=== PATIENT | male | born 1995 | race Caucasian/White ===

== ENCOUNTER 2022-06-19 12:07 | Emergency (ER) | payer BC, SELFPAY ==
--- NOTE | 2022-06-19 12:00 | RT.EKG_ITS ---
APPROVED REPORT Exam: Resting ECG Reason for Exam: chest pain Patient Location: E HR:59 bpm ECG Measurements Heart Rate [address] 141 P 11 QRSd 103 QRS 70 QT 401 T 82 QTc 396 Conclusion Sinus bradycardia...rate< 60 Abnrm T, consider ischemia, anterolateral lds...T <-0.20mV, I aVL V2-V6 no stemi
[2022-06-19 12:06] VITALS: BP 150/84; PULSE 80; RESP 15; TEMP 37; O2SAT 99
--- NOTE | 2022-06-19 12:15 | DI.CT_ITS ---
Exam(s) CT THORAX CTA EXAM: CT THORAX CTA CLINICAL HISTORY: hx coarctation, chest pain. TECHNIQUE: Imaging Protocol: Axial CT angiography was performed with multi-slice acquisition and mu lti-planar and/or 3D reconstructions. CONTRAST MATERIAL: Intravenous: Omnipaque 350 contrast volume:100 mL COMPARISON: CT CHEST WITH CONTRAST from 12/04/2014 FINDINGS: Tracheobronchial tree: Patent where visualized. Pulmonary parenchyma: No consolidation or dominant measurable mass. No architectural distortion. Stab le right upper lobe pulmonary nodules. These were present on the examination from 12/04/2014. Pulmonary Arteries: No evidence of filling defect to suggest pulmonary emboli. Mediastinum and Ching: No dominant adenopathy or fluid collection. The esophagus is unremarkable. Visualized thyroid gland: Unremarkable. Pleura: No effusion or pneumothorax. Heart: The heart is not dilated. No coronary artery calcifications are seen. No pericardial effusion. Aorta: Thoracic aorta non-dilated. There is again seen a stent in the aortic arch. There is no evide nce of dissection. Upper abdomen: Unremarkable. Soft tissues: Unremarkable. Bones: Within normal limits for the patient's age. IMPRESSION: 1. No evidence of pulmonary embolism, thoracic aortic dissection or aneurysm. 2. No acute pulmonary process. RADIATION DOSE DELIVERED: 558.41mGy.cm Total DLP DATA REPOSITORY: All CT scans at this facility are submitted to the National Radiology Data Registry (NRDR) Dose Index Registry (DIR) with the [employer] (ACR). RADIATION OPTIMIZATION: All CT scans at this facility use at least one of these dose optimization te chniques: automated exposure control; mA and/or kV adjustment per patient size (includes targeted exa ms where dose is matched to clinical indication); or iterative reconstruction.
--- NOTE | 2022-06-19 12:22 | ED.GENADUL_ITS ---
Discharge Plan Disposition Patient Disposition: Home Condition: Stable Discharge Details Clinical Impression: Chest pain Primary Care Provider: Delmy,Local ED Provider: Benjamin Cummins Home Meds and New Rx's Prescriptions: Continued aspirin [Aspirin Low-Strength] 81 MG tablet,chewable 81 mg PO DAILY Patient Comments: RECOMMEND D/C BY [facility] 05/17/16 - JN albuterol sulfate 8.5 GM HFA aerosol inhaler 2 puff Inhalation Q4H PRN montelukast 10 MG tablet 1 tab PO DAILY Qty: 90 Patient Comments: stated not taking losartan 50 mg tablet 50 mg PO BID Patient Comments: pt stated changed medication irbesartan 300 mg Tablet 300 mg PO DAILY Discharge Instructions Instructions: Chest Pain (ED) Additional Instructions: your blood work, ekg and cat scan did not show concerning findings at this time follow up with your primary care provider within 1 week if you feel more ill, have severe worsening pain or difficulty breathing return to the emergency department Medical Decision Making 27 yo male with hx of coarctation of aorta, htn, who comes in with anterior left chest pain starting an hour or so ago while he was doing deadlifts at the gym. He denies any fevers, chills, dyspnea, n/v. HE was given asa and pain has improved. He arrives stable speaking clearly in no distress. HAs clear lungs, no jvd, no crepitus of the chest wall, no rashes. Unclear etiology for his symptoms, will proceed with cbc, cmp, ekg/troponin and ct of the chest to evaluate for possible dissection, no hypoxia or tachycardia or evidence of dvt on exam so doubt pe labs and imaging unremarkable, patient pain free, will obtain delta troponin pt stable, resting in the stretcher in no distress, delta troponin negative, he is stable for d/c, return precautions given and advised to follow up with pcp Differential Diagnosis Differential Diagnosis: pericarditis, pleurisy, acs, dissection Medical Records Medical records reviewed: Yes I reviewed the patient's medical records. Imaging Data Radiologic Study: Attestation: I personally reviewed and interpreted this imaging study as follows: Imaging: CT Scan Radiologist's impression: IMPRESSION: 1. No acute findings. 2. Right upper lobe lung nodules Lab Data Lab results reviewed: Yes I reviewed the patient's lab results. ECG Data Attestation: I personally reviewed and interpreted this ECG (s) as follows: Prior ECG tracings: not available for review Interpretation: sinus, rate of 60, no stemi HPI General Mode of arrival: EMS . Date/Time Provider Initiated Documentation: 06/19/22 12:13 . Limitations to Documentation: no limitations . Information obtained by: patient . History of Present Illness 27 year old M presents to the emergency department with the chief complaint of chest pain, described as moderate, Patient started experiencing this hour(s) (1) and it has been constant. No relieving factors improve symptom(s), No exacerbating factors reported . Patient notes no other symptoms.. Patient did receive the following treatments prior to arrival, Aspirin Related Data Home Medications Medication Instructions Recorded Confirmed albuterol sulfate 90 mcg/actuation 2 puff inhalation Q4H PRN 03/28/13 06/19/22 aerosol inhaler aspirin 81 mg chewable tablet 81 mg PO DAILY 03/28/13 06/19/22 (Aspirin Low-Strength) montelukast 10 mg tablet 1 tab PO DAILY #90 tab-caps 07/01/16 losartan 50 mg tablet 50 mg PO BID 09/15/18 irbesartan 300 mg tablet 300 mg PO DAILY 06/19/22 06/19/22 Allergies Allergy/AdvReac Type Severity Reaction Status Date / Time No Known Allergies Allergy Unverified 06/19/22 12:49 General Stated Complaint: Chest Pain MAHAMED: 3 Review of Systems All systems reviewed & are unremarkable except as noted in HPI and below Constitutional Constitutional: Denies chills, Denies fever(s) and Denies weakness Cardiovascular Cardiovascular: Reports chest pain and Denies dyspnea Respiratory Respiratory: Denies cough and Denies dyspnea Gastrointestinal Gastrointestinal: Denies abdominal pain, Denies nausea and Denies vomiting Integumentary/Breasts Skin/Breast: Denies rash Neurologic Neurologic: Denies weakness [facility] All Active Problems (Updated 06/19/22 @ 14:08 by Benjamin Cummins MD) Chest pain (Acute) Asthma (Acute) Coarctation of aorta (Acute 01/27/12) Followed at [facility] and at [facility]. Moderate activity OK. F/u with cardiology 09/27 Hypertension (Acute 01/27/12) Secondary to congenital heart disease. Mainly happens with activity. Mild persistent asthma (Acute 03/17/16) Undescended testicle (Acute 03/28/13) L testicle removed at age 7. Well adult health check (Acute 03/18/17) Medical History (Updated 06/19/22 @ 14:08 by Benjamin Cummins MD) Asthma Coarctation of thoracic aorta History of Aqxnr-Pzzgkreez-Xjgeq (WPW) syndrome Surgical History (Updated 12/05/14 @ 14:41 by Chung Sanchez DO) aortic stent placement chest surgery Social History Smoking/Tobacco Use Status: Never Smoking risk assessment performed?: Yes Drug use: Never Do you feel safe at home: Yes Do you feel safe in your relationship?: Yes Exam Const General: no acute distress Orientation: alert HENMT Head: normal to inspection Ears: external ears normal General nose exam: external nose normal Mouth: moist mucous membranes Eyes General: appearance normal, both eyes and all related structures Neck Neck: normal visual inspection Resp Effort & Inspection: normal respiratory effort and able to speak in complete sentences Auscultation: clear to auscultation bilaterally Cardio Jugular venous pressure: no JVD Rate: regular rate Heart Sounds: no murmurs Skin General skin exam: no rashes or lesions noted Neuro General: patient alert and patient oriented x3 Extrem General: normal to inspection Psych Mental Status: mental status grossly normal Course Vital Signs Vital signs: Vital Signs Temperature 37.0 C 06/19/22 12:06 Pulse 80 06/19/22 12:06 Respiratory Rate 15 06/19/22 12:06 Blood Pressure 150/84 H 06/19/22 12:06 Pulse Oximetry 99 06/19/22 12:06 Temperature 37.0 C 06/19/22 12:06 Temperature Source Oral 06/19/22 12:06 Pulse 80 06/19/22 12:06 Respiratory Rate 15 06/19/22 12:06 Blood Pressure 150/84 H 06/19/22 12:06 Blood Pressure Position Sitting 06/19/22 12:06 Pulse Oximetry 99 06/19/22 12:06 Oxygen Delivery Method Room Air 06/19/22 12:06 Oxygen Flow Rate 0 06/19/22 12:06 Pain Level 4 06/19/22 12:06
[2022-06-19 12:29] LABS: Abs Immature Grans 0.03 10^3/uL (0.0-0.06); Absolute Basophil Count 0.04 10^3/uL (0.0-0.2); Absolute Lymphocyte Count 1.64 10^3/uL (1.2-3.4); Absolute Monocyte Count 0.61 10^3/uL (0.1-0.8); Basophils % 0.5; Eosinophils % 1.4; HCT 49.3 % (40.0-50.0); HGB 17.1 g/dL (13.5-17.5); Immature Grans % 0.4; Lymphocytes % 22.4; MCH 30.2 pg (27.0-33.0); MCHC 34.7 % (32.0-36.0); MCV 87 fL (80-95); MPV 9.7 fL (8.0-11.0); Monocytes % 8.3; Platelet Count 263 10^3/uL (130-400); RBC 5.67 10^6/uL (4.36-5.78); RDW 11.7 % (11.8-14.1); RDW-SD 37.3 fL; WBC 7.32 10^3/uL (4.4-10.8)
[2022-06-19 12:39] VITALS: RESP 14
[2022-06-19 12:51] LABS: ALT 36 U/L (16-63); AST 20 U/L (15-37); Albumin 4.3 g/dL (3.4-5.0); Alkaline Phosphatase 73 U/L (46-116); Anion Gap 3.5 mmol/L (3-11); BUN 18 mg/dL (7-18); Bilirubin, Total 0.6 mg/dL (0.2-1.0); CO2 32.5 mmol/L (21.0-32.0); CREATININE 1.1 mg/dL (0.70-1.30); Calcium 9.6 mg/dL (8.5-10.1); Chloride 103 mmol/L (98-107); Estimated GFR 95.54 (mL/min/1.73m2); Glucose 103 mg/dL (74-106); Lipase 72 U/L (16-77); Potassium 4.6 mmol/L (3.5-5.1); Sodium 139 mmol/L (136-145); Troponin I < 50 ng/L (<or=60)
[2022-06-19] MEDS: Normal Saline - Diluent 50 ML VIAL IJ (13:29)
[2022-06-19] MEDS: Omnipaque 350 MG/ML 500 ML BTL-Imaging package 90 ML IJ (13:29)
--- NOTE | 2022-06-19 14:00 | DI.VRAD_ITS ---
PROCEDURE INFORMATION: Exam: CTA Chest With Contrast Exam date and time: 06/19/2022 1:25 PM Age: 27 years old Clinical indication: Other: HX coarctation, chest pain; Prior surgery; Surgery date: 6+ months; Surgery type: Stent placed-at age 15 TECHNIQUE: Imaging protocol: Computed tomographic angiography of the chest with contrast. 3D rendering (Not supervised by radiologist): MIP and/or 3D reconstructed images were created by the technologist. Radiation optimization: All CT scans at this facility use at least one of these dose optimization techniques: automated exposure control; mA and/or kV adjustment per patient size (includes targeted exams where dose is matched to clinical indication); or iterative reconstruction. Contrast material: OMNIPAQUE 350; Contrast volume: 100 ml; Contrast route: INTRAVENOUS (IV); COMPARISON: No relevant prior studies available. FINDINGS: Pulmonary arteries: Normal. No pulmonary emboli. Aorta: Thoracic aorta: A patent stent is present in the aortic arch consistent with coarctation repair. The proximal thoracic aorta measures 2.8 cm. Descending thoracic aorta measures 2.3 cm. No dissection. Three vessels arise from the thoracic arch which are widely patent. Lungs: Right upper lobe lobulated 4 mm lung nodule. Adjacent right upper lobe subpleural 5 mm lung nodule. No airspace disease or lung consolidation. Pleural spaces: Unremarkable. No pneumothorax. No pleural effusion. Heart: Unremarkable. No cardiomegaly. No pericardial effusion. Lymph nodes: Unremarkable. No enlarged lymph nodes. Bones/joints: Median sternotomy wires. Soft tissues: Unremarkable. IMPRESSION: 1. No acute findings. 2. Right upper lobe lung nodules. Dictated and Authenticated by: Brooks Shah MD. Ordering:LIAM Alexander MD
[2022-06-19 15:36] LABS: Troponin I < 50 ng/L (<or=60)
[2022-06-19 16:23] VITALS: BP 135/81; PULSE 63; RESP 16; TEMP 37; O2SAT 98
== END 2022-06-19 16:24 | disposition home or self-care (01) ==
PROVIDERS: Emergency Provider Emergency Medicine
DX: R07.9 Chest pain, unspecified (principal); I10 Essential (primary) hypertension
CPT/HCPCS: 36415; 71275; 80053; 83690; 93005; 99285; 83735; 84484; 85025; 93010; 99283

== ENCOUNTER 2022-09-14 10:08 | Outpatient (REF) | payer BC, SELFPAY ==
[2022-09-16 10:21] LABS: Lyme Ab w Rflx to Lyme Confirm Negative (Negative)
== END 2022-09-14 10:09 | disposition home or self-care (01) ==
LOC: LBN 10:08
PROVIDERS: Visit Provider Nurse Practitioner Family
DX: W57.XXXA Bitten or stung by nonvenomous insect and other nonvenomous arthropods, initial encounter (principal)
CPT/HCPCS: 86618

== ENCOUNTER 2024-07-21 11:43 | Observation (INO) | payer OTHER, SELFPAY ==
[2024-07-21] VITALS (50 sets, daily range): BP systolic 97–143; BP diastolic 48–68; PULSE 48–90; RESP 2–20; TEMP 36.2–37; O2SAT 95–100
--- NOTE | 2024-07-21 11:30 | RT.EKG_ITS ---
APPROVED REPORT Exam: Resting ECG Reason for Exam: chest pain, sob Patient Location: E HR:89 bpm ECG Measurements Heart Rate 89 AXIS UT 155 P 52 QRSd 108 QRS 77 QT 361 T 78 QTc 439 Conclusion Sinus rhythm...normal P axis, V-rate 60- 99 Prominent P waves, nondiagnostic...wide/notched/biphasic P waves Consider inferior infarct...Q >35mS in II III aVF No Occlusion [place]. S1 every 3. Persistent T wave inversion in aVL. Compared to prior inferior Q wave s are new.
--- NOTE | 2024-07-21 12:00 | DI.CT_ITS ---
Exam(s) CT CHEST PE CTA EXAM: CT CHEST PE CTA CLINICAL HISTORY: Chest pain, hx of aortic stent. TECHNIQUE: Imaging Protocol: CT angiography of the chest was performed using pulmonary embolus alpesh col. Multi planar reconstructions were performed. CONTRAST MATERIAL: Intravenous: Omnipaque 350 Contrast volume: 100 cc COMPARISON: CT CT THORAX CTA from 06/19/2022 FINDINGS: CHEST: PULMONARY ARTERIES: There are no intraluminal filling defects to suggest acute pulmonary emboli. LUNGS: There are no infiltrates nor evidence of pulmonary infarction.. There are no pleural effusions . Small 4 millimeter pleural base nodule seen over the lateral aspect of the right upper lobe. MEDIASTINUM: There is no hilar nor mediastinal adenopathy. CARDIAC: Sternotomy wires. Heart size is upper normal. There is no pericardial effusion.Caliber of the thoracic aorta is within normal limits. There is a short segment (2 cm length) endovascular stent in the aortic arch just distal to the takeoff point of the left common carotid artery. This is prob ably from prior coarctation repair procedure. There is no intra stent stenosis. The distal aspect o f the stent is just proximal to the takeoff point of the left subclavian artery from the aortic arch. The diameter of the ascending thoracic aorta is within normal limits. There is no evidence of aort ic dissection. No evidence of aneurysm or pseudoaneurysm. There is no significant shift of the inte rventricular septum. PARTIALLY VISUALIZED UPPERMOST ABDOMEN: There is significant narrowing at the origin of the celiac ar devorah off the aortic arch. SMA is patent. OSSEOUS: There are left rib changes which are probably related to prior surgery. No acute fractures in the rib cages nor in the thoracic vertebral bodies and sternum. No osseous lesions.. IMPRESSION: 1. No evidence of acute pulmonary emboli. No evidence of pulmonary infarction.No pleural effusions. Incidental note of pleural based 4 mm nodule in the lateral aspect of the right upper lobe. 2. Again noted is a 2 cm length stent in the aortic arch as described above, unchanged and there also sternotomy wires. I suspect this may be from prior childhood aortic coarctation repair. No signifi cant aortic findings at this time. No dissection. No pericardial effusion 3. There is significant narrowing at the origin of the celiac artery of the anterior aortic wall at t he upper L1 level. 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 The superior mesenteric artery origin appears unremarkable. Report called by myself to ER 07/21/2024 at 1:05 p.m. RADIATION DOSE DELIVERED: 139.24mGy.cm Total DLP DATA REPOSITORY: All CT scans at this facility are submitted to the National Radiology Data Registry (NRDR) Dose Index Registry (DIR) with the [employer] (ACR). RADIATION OPTIMIZATION: All CT scans at this facility use at least one of these dose optimization te chniques: automated exposure control; mA and/or kV adjustment per patient size (includes targeted exa ms where dose is matched to clinical indication); or iterative reconstruction.
--- NOTE | 2024-07-21 12:00 | W.ED.GENAD ---
Discharge Plan Disposition Patient Disposition: Admit to [facility] Condition: Stable Discharge Details Clinical Impression: Chest pain Primary Care Provider: Unknown,Unknown ED Provider: Fatemeh Sterling Home Meds and New Rx's Prescriptions: No Action aspirin [Aspirin Low-Strength] 81 MG tablet,chewable 81 mg PO DAILY Patient Comments: RECOMMEND D/C BY [facility] 05/17/16 - JN albuterol sulfate 8.5 GM HFA aerosol inhaler 2 puff Inhalation Q4H PRN chlorthalidone 25 mg tablet 25 mg PO DAILY irbesartan 300 mg Tablet 300 mg PO DAILY HPI General Mode of arrival: EMS. Date/Time Provider Initiated Documentation: 07/21/24 11:59. Limitations to Documentation: no limitations. Information obtained by: patient, RN notes reviewed and old records reviewed. HPI Narrative: 29-year-old male presents to the ER via EMS with a chief complaint of chest tightness and increased shortness of breath while mountain biking. Patient states that today he was involved in a race and was feeling more short of breath and tired than normal. He started having some chest tightness walked to the rest of the way. 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 Does have a history of an aortic stent placement that was done at [facility] in childhood. He reports recent URI for the last couple of weeks. Denies any leg swelling. Reports that upon arrival that his chest tightness has most likely subsided. This started around 1030. Related Data Home Medications ?Medication ?Instructions ?Recorded ?Confirmed albuterol sulfate 90 mcg/actuation 2 puff inhalation Q4H PRN 03/28/13 07/21/24 aerosol inhaler aspirin 81 mg chewable tablet 81 mg PO DAILY 03/28/13 07/21/24 (Aspirin Low-Strength) irbesartan 300 mg tablet 300 mg PO DAILY 06/19/22 07/21/24 chlorthalidone 25 mg tablet 25 mg PO DAILY 07/21/24 07/21/24 Allergies Allergy/AdvReac Type Severity Reaction Status Date / Time No Known Allergies Allergy Unverified 07/21/24 11:49 General Stated Complaint: Chest Pain MAHAMED: 3 Review of Systems All systems reviewed & are unremarkable except as noted in HPI and below Cardiovascular Cardiovascular: Reports as per HPI, Reports chest pain, Reports chest pain with activity, Reports lightheadedness, Reports dyspnea and Reports dyspnea on exertion Respiratory Respiratory: Reports dyspnea and Reports dyspnea on exertion Exam Narrative Exam Narrative: Constitutional: Alert and oriented x3. Appears stated age. Normal body habitus. Head: Normocephalic, no trauma. Eyes: Pupils PERRL, Red reflex noted, EOM's intact. Eyelids symmetrical without lesions, discharge, or swelling. ENT: Bilateral TM's WNL, External ear normal to inspection, no mastoid TTP, swelling, or erythema, Nasal turbinates WNL, no nasal discharge. Normal dentition, Posterior pharynx WNL, no exudate. Chest: RRR, Normal S1, S2, distal pulses intact. No murmurs rubs or gallops auscultated. Resp: Lungs clear to auscultation bilaterally, no wheezes, rales, or rhonchi. Abdomen: Soft, non-distended, Normoactive bowel sounds all 4 quads. Musculoskeletal: Normal gait, Moves all 4 extremities without difficulty. Skin: No suspicious rashes or lesions. Capillary refill less than 2 sec. Neurologic: Cranial nerves II-XII intact. Alert and oriented x 3. Motor: No deficits noted. Sensory: Intact bilaterally all 4 extremities. Hematologic/Lymphatic: No ecchymosis, no lymphadenopathy. Course Vital Signs Vital signs: Vital Signs Temperature 36.8 C 07/21/24 11:43 Pulse 88 07/21/24 11:43 Respiratory Rate 18 07/21/24 11:43 Blood Pressure 143/62 H 07/21/24 11:43 Pulse Oximetry 98 07/21/24 11:43 Temperature 36.8 C 07/21/24 11:43 Temperature Source Oral 07/21/24 11:43 Pulse 88 07/21/24 11:43 Respiratory Rate 18 07/21/24 11:43 Blood Pressure 143/62 H 07/21/24 11:43 Blood Pressure Position Supine 07/21/24 11:43 Pulse Oximetry 98 07/21/24 11:43 Oxygen Delivery Method Room Air 07/21/24 11:43 Oxygen Flow Rate 0 07/21/24 11:43 Medical Decision Making 29-year-old male presents to the ER via EMS with a chief complaint of chest tightness and increased shortness of breath while mountain biking. Patient states that today he was involved in a race and was feeling more short of breath and tired than normal. He started having some chest tightness walked to the rest of the way. 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 Does have a history of an aortic stent placement that was done at [facility] in childhood. He reports recent URI for the last couple of weeks. Denies any leg swelling. Reports that upon arrival that his chest tightness has most likely subsided. This started around 1030. EKG was reviewed by [myself, and Dr. Kowalski] ER attending, old EKG available for review, see official report. Cardiac workup ordered including proBNP and D-dimer. Will order CT chest. Differential diagnosis includes but not limited to CAD, dissection, PE, URI Initial troponin 45-second troponin 67 which is greater then 15 change, patient reports that his chest pain is resolved. The remainder of his workup is relatively normal white blood cell count 13.6 BUN 23 creatinine 1.1 proBNP 24 lipase 78 negative for COVID flu RSV. CT chest shows no evidence for PE. Patient states that he does see industrial machine assembler in [place] will contact [facility] and speak with cardiology regarding patient. 1349: Call made to [facility] transfer center to speak with cardiology has patient seen Dr. Swan with them he reports that his chest pain has resolved. They will call me back. 1432: Spoke with Dr. Daniels Claim Trainee at [facility] regarding patient case and details. She recommends admission for observation, trending Troponins and echoocardiogram. She does not recommend transfer for intervention at this time. Discussed plan of care with patient who verbalizes understanding and is in agreement with the plan. Will discuss case with hospitalist. 1445: Spoke with Dr. Patino who agrees to accept patient for admission. Patient hemodynamically stable at the time of this dictation. This text was generated using [email or web address] system, please disregard any oddities of phrase or misspellings. Medical Records Medical records reviewed: Yes I reviewed the patient's medical records. Imaging Data Radiologic Study: Imaging: CT Scan Radiologist's impression: CHEST: PULMONARY ARTERIES: There are no intraluminal filling defects to suggest acute pulmonary emboli. LUNGS: There are no infiltrates nor evidence of pulmonary infarction.. There are no pleural effusions. Small 4 millimeter pleural base nodule seen over the lateral aspect of the right upper lobe. MEDIASTINUM: There is no hilar nor mediastinal adenopathy. CARDIAC: Sternotomy wires. Heart size is upper normal. There is no pericardial effusion.Caliber of the thoracic aorta is within normal limits. There is a short segment (2 cm length) endovascular stent in the aortic arch just distal to the takeoff point of the left common carotid artery. This is probably from prior coarctation repair procedure. There is no intra stent stenosis. The distal aspect of the stent is just proximal to the takeoff point of the left subclavian artery from the aortic arch. The diameter of the ascending thoracic aorta is within normal limits. There is no evidence of aortic dissection. No evidence of aneurysm or pseudoaneurysm. There is no significant shift of the interventricular septum. PARTIALLY VISUALIZED UPPERMOST ABDOMEN: There is significant narrowing at the origin of the celiac artery off the aortic arch. SMA is patent. OSSEOUS: There are left rib changes which are probably related to prior surgery. No acute fractures in the rib cages nor in the thoracic vertebral bodies and sternum. No osseous lesions.. IMPRESSION: 1. No evidence of acute pulmonary emboli. No evidence of pulmonary infarction.No pleural effusions. Incidental note of pleural based 4 mm nodule in the lateral aspect of the right upper lobe. 2. Again noted is a 2 cm length stent in the aortic arch as described above, unchanged and there also sternotomy wires. I suspect this may be from prior childhood aortic coarctation repair. No significant aortic findings at this time. No dissection. No pericardial effusion 3. There is significant narrowing at the origin of the celiac artery of the anterior aortic wall at the upper L1 level. 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 The superior mesenteric artery origin appears unremarkable. Lab Data Lab results reviewed: Yes I reviewed the patient's lab results. Labs: Laboratory Tests Range/Units 07/21/24 07/21/24 07/21/24 11:54 11:59 12:06 WBC (4.4-10.8) 10^3/uL 13.66 H RBC (4.36-5.78) 10^6/uL 4.97 Hgb (13.5-17.5) g/dL 15.1 Hct (40.0-50.0) % 43.4 MCV (80-95) fL 87 MCH (27.0-33.0) pg 30.4 MCHC (32.0-36.0) % 34.8 RDW (11.8-14.1) % 11.9 Plt Count (130-400) 10^3/uL 232 MPV (8.0-11.0) fL 10.2 Immature Gran % % 0.3 Neutrophils % % 86.4 Lymphocytes % % 7.7 Monocytes % % 5.1 Eosinophils % % 0.1 Basophils % % 0.4 Nucleated RBC % (0.0-0.3) % 0.0 Absolute Neutrophils (1.2-6.7) 10^3/uL 11.80 H Absolute Lymphocytes (1.2-3.4) 10^3/uL 1.05 L Absolute Monocytes (0.1-0.8) 10^3/uL 0.70 Absolute Eosinophils (0.0-0.7) 10^3/uL 0.01 Absolute Basophils (0.0-0.2) 10^3/uL 0.05 PT (9.1-11.1) sec 11.4 H INR (0.9-1.1) 1.1 APTT (20.6-30.2) sec 24.5 D-Dimer Cancelled Sodium (136-145) mmol/L 138 Potassium (3.5-5.1) mmol/L 3.8 Chloride (98-107) mmol/L 102 Carbon Dioxide (21.0-32.0) mmol/L 30.8 Anion Gap (3-11) mmol/L 5.2 BUN (7-18) mg/dL 23 H Creatinine (0.70-1.30) mg/dL 1.1 Est GFR (CKD-EPI 2020) (mL/min/1.73m2) 94.36 Glucose (74-106) mg/dL 97 Calcium (8.5-10.1) mg/dL 9.3 Magnesium (1.8-2.4) mg/dL 2.1 Total Bilirubin (0.2-1.0) mg/dL 0.6 AST (15-37) U/L 20 ALT (16-63) U/L 38 Alkaline Phosphatase (46-116) U/L 75 Troponin I (<or=76) ng/L 45 NT-Pro-B Natriuret Pep (<300) pg/mL 24 Total Protein (6.4-8.2) g/dL 7.4 Albumin (3.4-5.0) g/dL 4.0 Lipase (<78) U/L 78 H COVID-19 Source Nasopharynx SARS-CoV-2 (PCR) (Negative) Negative Influenza Type A (PCR) (Negative) Negative Influenza Type B (PCR) (Negative) Negative RSV (PCR) (Negative) Negative Quality:SDOH Health Related Social Needs: No Data to Display PFSH All Active Problems (Updated 07/21/24 @ 14:46 by Fatemeh Sterling NP) Chest pain (Acute) Asthma (Acute) Coarctation of aorta (Acute 01/27/12) Followed at [facility] and at [facility]. Moderate activity OK. F/u with cardiology 09/27 Hypertension (Acute 01/27/12) Secondary to congenital heart disease. Mainly happens with activity. Mild persistent asthma (Acute 03/17/16) Undescended testicle (Acute 03/28/13) L testicle removed at age 7. Well adult health check (Acute 03/18/17) Medical History (Updated 07/21/24 @ 14:46 by Fatemeh Sterlign NP) Asthma History of Jzyvx-Ajxksgddr-Xkfpi (WPW) syndrome Coarctation of thoracic aorta Surgical History (Updated 12/05/14 @ 14:41 by Chung Sanchez DO) chest surgery aortic stent placement Social History Smoking/Tobacco Use Status: Never Smoking risk assessment performed?: Yes Alcohol Intake: current Alcohol Intake frequency: a few times a month Drug use: Occasionally Substance use type: marijuana Do you feel safe at home: Yes Do you feel safe in your relationship?: Yes PAWSS Have you Been Recently Intoxicated or Drunk Within the Last 30 days?: No Have you Ever Experienced Previous Episodes of Alcohol Withdrawal?: No Have you ever Experienced Withdrawal Seizures?: No Have you ever Experienced Delirium Tremens(DT)s?: No Have you ever undergone Alcohol Rehabilitation Treatment (i.e, inpt ot outpatient treatment programs)?: No Have you ever Experienced Blackouts?: No Have you ever Combined Alcohol with other Downers within the last 90 days?: No Have you ever Combined Alcohol with any other Substance of Abuse during the last 90 days?: No Result: 0
[2024-07-21 12:12] LABS: Abs Immature Grans 0.04 10^3/uL (0.0-0.06); Absolute Basophil Count 0.05 10^3/uL (0.0-0.2); Absolute Lymphocyte Count 1.05 10^3/uL (1.2-3.4); Basophils % 0.4 %; Eosinophils % 0.1 %; HCT 43.4 % (40.0-50.0); HGB 15.1 g/dL (13.5-17.5); Immature Grans % 0.3 %; Lymphocytes % 7.7 %; MCH 30.4 pg (27.0-33.0); MCHC 34.8 % (32.0-36.0); MCV 87 fL (80-95); MPV 10.2 fL (8.0-11.0); Monocytes % 5.1 %; Neutrophils % 86.4 %; Platelet Count 232 10^3/uL (130-400); RBC 4.97 10^6/uL (4.36-5.78); RDW 11.9 % (11.8-14.1); RDW-SD 37.7 fL; WBC 13.66 10^3/uL (4.4-10.8)
[2024-07-21 12:14] LABS: Absolute Eosinophil Count 0.01 10^3/uL (0.0-0.7)
[2024-07-21 12:25] LABS: INR 1.1 (0.9-1.1); PTT Activated 24.5 sec (20.6-30.2); Prothrombin Time 11.4 sec (9.1-11.1)
[2024-07-21 12:34] LABS: ALT 38 U/L (16-63); AST 20 U/L (15-37); Alkaline Phosphatase 75 U/L (46-116); Anion Gap 5.2 mmol/L (3-11); BUN 23 mg/dL (7-18); Bilirubin, Total 0.6 mg/dL (0.2-1.0); CO2 30.8 mmol/L (21.0-32.0); CREATININE 1.1 mg/dL (0.70-1.30); Calcium 9.3 mg/dL (8.5-10.1); Chloride 102 mmol/L (98-107); Estimated GFR 94.36 (mL/min/1.73m2); Glucose 97 mg/dL (74-106); Lipase 78 U/L (<78); Magnesium 2.1 mg/dL (1.8-2.4); NT-proBNP 24 pg/mL (<300); Potassium 3.8 mmol/L (3.5-5.1); Sodium 138 mmol/L (136-145); Total Protein 7.4 g/dL (6.4-8.2); Troponin I 45 ng/L (<or=76)
[2024-07-21] MEDS: Normal Saline - Diluent 50 ML VIAL IJ (12:37)
[2024-07-21] MEDS: Omnipaque 350 MG/ML 100 ML BTL IJ (12:38)
[2024-07-21 12:52] LABS: COVID-19 PCR Negative (Negative); Influenza A PCR Negative (Negative); Influenza B PCR Negative (Negative); RSV PCR Negative (Negative)
[2024-07-21 12:54] LABS: Source Nasopharynx
--- NOTE | 2024-07-21 13:06 | DI.VRAD_ITS ---
PROCEDURE INFORMATION: Exam: CTA Chest With Contrast Exam date and time: 07/21/2024 12:29 PM Age: 29 years old Clinical indication: Other: Chest pain; Prior surgery; Surgery date: 6+ months; Surgery type: HX of aortic stent; Additional info: Chest pain, HX of aortic stent TECHNIQUE: Imaging protocol: Computed tomographic angiography of the chest with contrast. Exam focused on the arteries. 3D rendering (Not supervised by radiologist): MIP and/or 3D reconstructed images were created by the technologist. Contrast material: OMNI 350; Contrast volume: 100 ml; Contrast route: INTRAVENOUS (IV); COMPARISON: CT THORAX CTA 06/19/2022 1:25 PM FINDINGS: Tubes, catheters and devices: There are sternal wires consistent with previous sternotomy incision. Pulmonary arteries: There is dilatation of the main pulmonary trunk, suggestive of pulmonary hypertension. Aorta: Aortic arch stent with no significant narrowing of thrombosis. Lungs: Unremarkable. No consolidation. No masses. Pleural spaces: Unremarkable. No pneumothorax. No pleural effusion. Heart: Unremarkable. No cardiomegaly. No pericardial effusion. Lymph nodes: Unremarkable. No enlarged lymph nodes. Bones/joints: Unremarkable. No acute fracture. Soft tissues: Unremarkable. IMPRESSION: 1. No acute cardiopulmonary process. 2. No pulmonary embolism. 3. Patent aortic arch stent. Dictated and Authenticated by: Alan Gonzalez MD. Orderin Asher Weldon MD
[2024-07-21 13:26] LABS: Troponin I 67 ng/L (<or=76)
--- NOTE | 2024-07-21 14:47 | HPE_ITS ---
Date of service: 07/21/24 Time of Service: 14:48 Assessment and Plan Assessment and plan (1) Chest pain: Status: Acute Assessment and plan: - Patient with history of surgically repaired cord during childhood as well as Whvhk-Nedagoulr-Lrmfl experienced exertional chest pain during mountain bike race - Chest pain resolved without intervention in the emergency department - EKG unchanged - Troponins trending up, 45, 67, 87 - If troponins continue to trend up significantly will reach back out to [facility] cardiology - Will continue to trend troponins, obtain echocardiogram on Tuesday07/23/2024 (2) Coarctation of aorta: Status: Acute Assessment and plan: - History of repair during childhood - Continue home aspirin, chlorthalidone, irbesartan (3) WPW (Bjyfr-Fhgeytnxc-Awyul syndrome): Status: Acute Assessment and plan: - History of - May be because of exertional chest pain - Obtain stat EKG if chest pain recurs History of Present Illness History of Present Illness Chief Complaint: Chest pain Narrative: 29-year-old male with a past medical history of Qmaqm-Thbkqbuwy-Htedi syndrome status post ablation,: Thoracic aorta at with history of aortic stent placement done at [facility] during childhood who sees cardiology at [facility] and presents the emergency department with complaints of chest pain. Patient states that he began experiencing chest tightness and increased shortness of breath while he was mountain biking during a race. Chest pain caused him to have to walk the rest of the way of the race and he shortly presented to the hospital thereafter. He denied any headache, lightheadedness, dizziness, nausea vomiting or diarrhea. In the emergency department the patient was noted as having some chest pain and appearing mildly uncomfortable however chest pain spontaneously resolved. CBC showed very mild leukocytosis with a white blood cell count of 13, otherwise normal CBC and CMP. EKG was without any acute findings. Troponins were checked and was noted as being 45 subsequently 67. Emergency room BLANKBOOK STITCHING MACHINE OPERATOR reached out to [facility] on site nurse Dr. Camarillo who recommended admitting patient under observation, trending the troponins and obtaining echocardiogram. At which time emergency room BLANKBOOK STITCHING MACHINE OPERATOR reached out to hospitalist for admission for patient for observation for trending troponins and echocardiogram. Review of Systems All systems reviewed & are unremarkable except as noted in HPI and below PFSH All Active Problems (Updated 07/21/24 @ 16:46 by Ricardo Patino MD) WPW (Penlj-Pfynmdaxa-Xljuf syndrome) (Acute) Chest pain (Acute) Asthma (Acute) Coarctation of aorta (Acute 01/27/12) Followed at [facility] and at [facility]. Moderate activity OK. F/u with cardiology 09/27 Hypertension (Acute 01/27/12) Secondary to congenital heart disease. Mainly happens with activity. Mild persistent asthma (Acute 03/17/16) Undescended testicle (Acute 03/28/13) L testicle removed at age 7. Well adult health check (Acute 03/18/17) Medical History (Updated 07/21/24 @ 16:46 by Ricardo Patino MD) Asthma History of Qgbjy-Tqdfgexvk-Crdmm (WPW) syndrome Coarctation of thoracic aorta Surgical History (Updated 12/05/14 @ 14:41 by Chung Sanchez DO) chest surgery aortic stent placement Social History Smoking/Tobacco Use Status: Never Smoking risk assessment performed?: Yes Alcohol Intake: current Alcohol Intake frequency: a few times a month Drug use: Occasionally Substance use type: marijuana Housing: house Do you feel safe at home: Yes Do you feel safe in your relationship?: Yes Meds Allergies and Home Medications Allergies Allergy/AdvReac Type Severity Reaction Status Date / Time No Known Allergies Allergy Unverified 07/21/24 11:49 Home Medications ?Medication ?Instructions ?Recorded ?Confirmed ?Type albuterol sulfate 90 mcg/actuation 2 puff inhalation Q4H PRN 03/28/13 07/21/24 History aerosol inhaler aspirin 81 mg chewable tablet 81 mg PO DAILY 03/28/13 07/21/24 History (Aspirin Low-Strength) irbesartan 300 mg tablet 300 mg PO DAILY 06/19/22 07/21/24 History chlorthalidone 25 mg tablet 25 mg PO DAILY 07/21/24 07/21/24 History Exam Narrative Exam Narrative: Well-appearing young gentleman sitting up in the chair no acute distress, ANO x 4, heart regular rhythm, lungs clear to auscultation bilaterally, abdomen soft, nontender, nondistended Results Labs 07/21/24 11:54 07/21/24 11:54 Labs: Laboratory Results - last 24 hr 07/21/24 07/21/24 07/21/24 11:54 11:59 12:06 WBC 13.66 H RBC 4.97 Hgb 15.1 Hct 43.4 MCV 87 MCH 30.4 MCHC 34.8 RDW 11.9 Plt Count 232 MPV 10.2 Immature Gran % 0.3 Neutrophils % 86.4 Lymphocytes % 7.7 Monocytes % 5.1 Eosinophils % 0.1 Basophils % 0.4 Nucleated RBC % 0.0 Absolute Neutrophils 11.80 H Absolute Lymphocytes 1.05 L Absolute Monocytes 0.70 Absolute Eosinophils 0.01 Absolute Basophils 0.05 PT 11.4 H INR 1.1 APTT 24.5 D-Dimer Cancelled Sodium 138 Potassium 3.8 Chloride 102 Carbon Dioxide 30.8 Anion Gap 5.2 BUN 23 H Creatinine 1.1 Est GFR (CKD-EPI 2020) 94.36 Glucose 97 Calcium 9.3 Magnesium 2.1 Total Bilirubin 0.6 AST 20 ALT 38 Alkaline Phosphatase 75 Troponin I 45 NT-Pro-B Natriuret Pep 24 Total Protein 7.4 Albumin 4.0 Lipase 78 H COVID-19 Source Nasopharynx SARS-CoV-2 (PCR) Negative Influenza Type A (PCR) Negative Influenza Type B (PCR) Negative RSV (PCR) Negative 07/21/24 12:55 WBC RBC Hgb Hct MCV MCH MCHC RDW Plt Count MPV Immature Gran % Neutrophils % Lymphocytes % Monocytes % Eosinophils % Basophils % Nucleated RBC % Absolute Neutrophils Absolute Lymphocytes Absolute Monocytes Absolute Eosinophils Absolute Basophils PT INR APTT D-Dimer Sodium Potassium Chloride Carbon Dioxide Anion Gap BUN Creatinine Est GFR (CKD-EPI 2020) Glucose Calcium Magnesium Total Bilirubin AST ALT Alkaline Phosphatase Troponin I 67 NT-Pro-B Natriuret Pep Total Protein Albumin Lipase COVID-19 Source SARS-CoV-2 (PCR) Influenza Type A (PCR) Influenza Type B (PCR) RSV (PCR) Last Vital Signs Temp 98.3 F 07/21/24 11:43 Pulse 58 L 07/21/24 13:52 Resp 15 07/21/24 13:52 BP 109/55 L 07/21/24 13:52 Pulse Ox 100 07/21/24 13:52 PAWSS Have you Been Recently Intoxicated or Drunk Within the Last 30 days?: No Have you Ever Experienced Previous Episodes of Alcohol Withdrawal?: No Have you ever Experienced Withdrawal Seizures?: No Have you ever Experienced Delirium Tremens(DT)s?: No Have you ever undergone Alcohol Rehabilitation Treatment (i.e, inpt ot outpatient treatment programs)?: No Have you ever Experienced Blackouts?: No Have you ever Combined Alcohol with other Downers within the last 90 days?: No Have you ever Combined Alcohol with any other Substance of Abuse during the last 90 days?: No Result: 0 Time Spent Time spent with Patient: >75 minutes Time was spent: preparing to see the patient(eg.review tests), obtaining and/or reviewing separately otained hiistory, ordering medications,tests, procedures, referring, communicating with other health manager home healthcare, indepentently interpreting results, counseling the patient and care coordination
[2024-07-21 15:26] LABS: Troponin I 87 ng/L (<or=76)
[2024-07-21 16:48] LABS: Troponin I 63 ng/L (<or=76)
--- NOTE | 2024-07-21 17:53 | W.PC.ACHO ---
Registration Status: Primary Language: Preferred Language: ED Information & Data Chief Complaint Chest Pain 07/21/24 12:01 Triage Note chest tightness with SOB and 07/21/24 11:43 lightheadedness started 1030 Hx: WPW Medical / Surgical History Asthma History of Xkwkp-Zmqzysfib-Nmscp (WPW) syndrome Coarctation of thoracic aorta chest surgery aortic stent placement Most Recent Vital Signs Temperature 97.2 F L 07/21/24 15:57 Temperature Source Temporal Artery Scan 07/21/24 15:57 Pulse 54 L 07/21/24 15:57 Pulse Rhythm Regular 07/21/24 16:13 Pulse 60 07/21/24 15:32 Respiratory Rate 16 07/21/24 15:57 Respiratory Effort Normal, Non-Labored 07/21/24 16:13 Respiratory Depth Normal 07/21/24 16:13 Respiratory Pattern Normal 07/21/24 16:13 Blood Pressure 120/68 07/21/24 15:57 Blood Pressure Mean 85 07/21/24 15:57 Blood Pressure Position Supine 07/21/24 11:43 Pulse Oximetry 100 07/21/24 15:57 Oxygen Delivery Method Room Air 07/21/24 15:57 Oxygen Flow Rate 0 07/21/24 15:57 Pain Level 0 07/21/24 15:57 Allergies No Known Allergies Allergy (Unverified 07/21/24 11:49) Active Medications Generic Name Dose Route Start Last Admin Trade Name Freq PRN Reason Stop Dose Admin Iohexol 100 ml 07/21/24 12:45 07/21/24 12:38 Omnipaque 350 Mg/Ml 100 Ml Btl IJ 08/20/24 23:59 100 ml DIRECTED SULEIMAN Administration Sodium Chloride 50 ml 07/21/24 12:45 07/21/24 12:37 Normal Saline - Diluent 50 Ml Vial IJ 50 ml .FOR DI USE SULEIMAN Administration IV IV Catheter Type [Left Saline Lock Antecubital] IV Catheter Gauge [Left 18 Antecubital] Diet Orders Category Date Time Status Heart Healthy Eating [DIET] Nutrition 07/21/24 Dinner Active Diagnostics 07/21/24 07/21/24 07/21/24 Range/Units 18:00 17:47 16:20 WBC (4.4-10.8) 10^3/uL RBC (4.36-5.78) 10^6/uL Hgb (13.5-17.5) g/dL Hct (40.0-50.0) % MCV (80-95) fL MCH (27.0-33.0) pg MCHC (32.0-36.0) % RDW (11.8-14.1) % Plt Count (130-400) 10^3/uL MPV (8.0-11.0) fL Immature Gran % % Neutrophils % % Lymphocytes % % Monocytes % % Eosinophils % % Basophils % % Nucleated RBC % (0.0-0.3) % Absolute Neutrophils (1.2-6.7) 10^3/uL Absolute Lymphocytes (1.2-3.4) 10^3/uL Absolute Monocytes (0.1-0.8) 10^3/uL Absolute Eosinophils (0.0-0.7) 10^3/uL Absolute Basophils (0.0-0.2) 10^3/uL PT (9.1-11.1) sec INR (0.9-1.1) APTT (20.6-30.2) sec D-Dimer Sodium (136-145) mmol/L Potassium (3.5-5.1) mmol/L Chloride (98-107) mmol/L Carbon Dioxide (21.0-32.0) mmol/L Anion Gap (3-11) mmol/L BUN (7-18) mg/dL Creatinine (0.70-1.30) mg/dL Est GFR (CKD-EPI 2020) (mL/min/1.73m2) Glucose (74-106) mg/dL Calcium (8.5-10.1) mg/dL Magnesium (1.8-2.4) mg/dL Total Bilirubin (0.2-1.0) mg/dL AST (15-37) U/L ALT (16-63) U/L Alkaline Phosphatase (46-116) U/L Troponin I Cancelled Cancelled 63 (<or=76) ng/L NT-Pro-B Natriuret Pep (<300) pg/mL Total Protein (6.4-8.2) g/dL Albumin (3.4-5.0) g/dL Lipase (<78) U/L COVID-19 Source SARS-CoV-2 (PCR) (Negative) Influenza Type A (PCR) (Negative) Influenza Type B (PCR) (Negative) RSV (PCR) (Negative) 07/21/24 07/21/24 07/21/24 Range/Units 14:59 12:55 12:06 WBC (4.4-10.8) 10^3/uL RBC (4.36-5.78) 10^6/uL Hgb (13.5-17.5) g/dL Hct (40.0-50.0) % MCV (80-95) fL MCH (27.0-33.0) pg MCHC (32.0-36.0) % RDW (11.8-14.1) % Plt Count (130-400) 10^3/uL MPV (8.0-11.0) fL Immature Gran % % Neutrophils % % Lymphocytes % % Monocytes % % Eosinophils % % Basophils % % Nucleated RBC % (0.0-0.3) % Absolute Neutrophils (1.2-6.7) 10^3/uL Absolute Lymphocytes (1.2-3.4) 10^3/uL Absolute Monocytes (0.1-0.8) 10^3/uL Absolute Eosinophils (0.0-0.7) 10^3/uL Absolute Basophils (0.0-0.2) 10^3/uL PT (9.1-11.1) sec INR (0.9-1.1) APTT (20.6-30.2) sec D-Dimer Sodium (136-145) mmol/L Potassium (3.5-5.1) mmol/L Chloride (98-107) mmol/L Carbon Dioxide (21.0-32.0) mmol/L Anion Gap (3-11) mmol/L BUN (7-18) mg/dL Creatinine (0.70-1.30) mg/dL Est GFR (CKD-EPI 2020) (mL/min/1.73m2) Glucose (74-106) mg/dL Calcium (8.5-10.1) mg/dL Magnesium (1.8-2.4) mg/dL Total Bilirubin (0.2-1.0) mg/dL AST (15-37) U/L ALT (16-63) U/L Alkaline Phosphatase (46-116) U/L Troponin I 87 H* 67 (<or=76) ng/L NT-Pro-B Natriuret Pep (<300) pg/mL Total Protein (6.4-8.2) g/dL Albumin (3.4-5.0) g/dL Lipase (<78) U/L COVID-19 Source Nasopharynx SARS-CoV-2 (PCR) Negative (Negative) Influenza Type A (PCR) Negative (Negative) Influenza Type B (PCR) Negative (Negative) RSV (PCR) Negative (Negative) 07/21/24 07/21/24 Range/Units 11:59 11:54 WBC 13.66 H (4.4-10.8) 10^3/uL RBC 4.97 (4.36-5.78) 10^6/uL Hgb 15.1 (13.5-17.5) g/dL Hct 43.4 (40.0-50.0) % MCV 87 (80-95) fL MCH 30.4 (27.0-33.0) pg MCHC 34.8 (32.0-36.0) % RDW 11.9 (11.8-14.1) % Plt Count 232 (130-400) 10^3/uL MPV 10.2 (8.0-11.0) fL Immature Gran % 0.3 % Neutrophils % 86.4 % Lymphocytes % 7.7 % Monocytes % 5.1 % Eosinophils % 0.1 % Basophils % 0.4 % Nucleated RBC % 0.0 (0.0-0.3) % Absolute Neutrophils 11.80 H (1.2-6.7) 10^3/uL Absolute Lymphocytes 1.05 L (1.2-3.4) 10^3/uL Absolute Monocytes 0.70 (0.1-0.8) 10^3/uL Absolute Eosinophils 0.01 (0.0-0.7) 10^3/uL Absolute Basophils 0.05 (0.0-0.2) 10^3/uL PT 11.4 H (9.1-11.1) sec INR 1.1 (0.9-1.1) APTT 24.5 (20.6-30.2) sec D-Dimer Cancelled Sodium 138 (136-145) mmol/L Potassium 3.8 (3.5-5.1) mmol/L Chloride 102 (98-107) mmol/L Carbon Dioxide 30.8 (21.0-32.0) mmol/L Anion Gap 5.2 (3-11) mmol/L BUN 23 H (7-18) mg/dL Creatinine 1.1 (0.70-1.30) mg/dL Est GFR (CKD-EPI 2020) 94.36 (mL/min/1.73m2) Glucose 97 (74-106) mg/dL Calcium 9.3 (8.5-10.1) mg/dL Magnesium 2.1 (1.8-2.4) mg/dL Total Bilirubin 0.6 (0.2-1.0) mg/dL AST 20 (15-37) U/L ALT 38 (16-63) U/L Alkaline Phosphatase 75 (46-116) U/L Troponin I 45 (<or=76) ng/L NT-Pro-B Natriuret Pep 24 (<300) pg/mL Total Protein 7.4 (6.4-8.2) g/dL Albumin 4.0 (3.4-5.0) g/dL Lipase 78 H (<78) U/L COVID-19 Source SARS-CoV-2 (PCR) (Negative) Influenza Type A (PCR) (Negative) Influenza Type B (PCR) (Negative) RSV (PCR) (Negative) Intake and Output - 24 Hour Total 07/21/24 11:32 thru 07/21/24 17:20 Intake Total 10 Output Total 400 Balance -390 Weight 195 lb 15.855 oz Intake: IV 10 Output: Urine 400 Other: Urine Color Yellow Urine Appearance Clear Falls Risk Assessment History of Falls Previous History 07/21/24 16:13 Contributing Factors Unstable 07/21/24 16:13 Ambulatory Aids Independent 07/21/24 16:13 Tubes/Lines None 07/21/24 16:13 Gait Evaluation No gait disturbance 07/21/24 16:13 Cognition No cognitive impairment 07/21/24 16:13 Fall Total Score 18 07/21/24 16:13 Level of Risk Standard/Low Risk 07/21/24 16:13 Problems WPW (Fsnqr-Jhlqmoagr-Xnlcm syndrome) (Acute) Chest pain (Acute) Coarctation of aorta (Acute 01/27/12) v v v v v v v v v Sending and/or Receiving Nurses: Please use comment section below to note any information pertinent to the patient hand-off not included above. Information / Comments: Report received from: Shauna Parson RN
[2024-07-21] MEDS: Normal Saline Flush 10 ML SYR IVP ×2 (19:25→19:26)
[2024-07-22 03:38] VITALS: BP 122/67; PULSE 48; RESP 19; TEMP 36.6; O2SAT 98
[2024-07-22 06:06] LABS: HCT 44.3 % (40.0-50.0); HGB 15.3 g/dL (13.5-17.5); MCH 29.9 pg (27.0-33.0); MCHC 34.5 % (32.0-36.0); MCV 87 fL (80-95); MPV 10.1 fL (8.0-11.0); Platelet Count 213 10^3/uL (130-400); RBC 5.11 10^6/uL (4.36-5.78); RDW 11.9 % (11.8-14.1); RDW-SD 37.6 fL; WBC 7.62 10^3/uL (4.4-10.8)
[2024-07-22 06:29] LABS: Anion Gap 6.3 mmol/L (3-11); BUN 22 mg/dL (7-18); CO2 29.7 mmol/L (21.0-32.0); CREATININE 0.8 mg/dL (0.70-1.30); Calcium 9.2 mg/dL (8.5-10.1); Chloride 103 mmol/L (98-107); Glucose 99 mg/dL (74-106); Magnesium 1.9 mg/dL (1.8-2.4); Potassium 3.6 mmol/L (3.5-5.1); Sodium 139 mmol/L (136-145); Troponin I 23 ng/L (<or=76)
[2024-07-22] MEDS: Irbesartan 75 MG TAB 300 MG PO (08:09)
[2024-07-22] MEDS: Chlorthalidone 25 MG TAB PO (08:10)
[2024-07-22] MEDS: Aspirin 81 MG CHEW PO (08:10)
[2024-07-22] MEDS: Normal Saline Flush 10 ML SYR IVP (08:10)
--- NOTE | 2024-07-22 16:32 | PDOC.CMPRO ---
Date of service: 07/22/24 Time of Service: 08:30 Care Management Progress Note Progress Note Text Progress Note Text: Jose F presented to the ED yesterday afternoon with c/o chest tightness and shortness of breath. He has a history of Doeld-Xeydkdcsm-Bpnci syndrome, and coarctation of the thoracic aorta, s/p stent placement as child, so these symptoms were especially concerning to this young man. His symptoms had pretty much resolved when he arrived to the Ed, but was kept overnight for monitoring. 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 He does have insurance, and will call admissions tomorrow to relay the info. He just didn't have his card with him at the time. Jose F's PCP is Amrit Nuñez at [facility], he is also followed by cardiology at [facility]. Jose F was discharged home today with no new services. He was given a work note to return tomorrow with no restrictions, but he does need time off tomorrow for an echocardiogram. Discharge Potential Discharge Needs: PCP F/U Appt and Other (cardiology f/u) Anticipated Barriers to Discharge: None Identified (discharged this morning) Patient/Family Education Needs: Review discharge instructions, discuss Ask Me Three Transportation: Private vehicle Plan: Jose F was discharged home this morning with instructions to f/u with his senior science consultant and his PCP. He was transported home in a private vehicle. Social Determinants of Health Screening Social Determinants of health last assessed in clinic: 07/22/24 Will the Patient Participate in the Screening?: Yes Do you worry about having a steady place to live?: no Problems where you live: no known problems In the past 12 months, have you had to go without electric, gas, oil or water in your home?: no 1. Within the past 12 months, we worried whether our food would run out before we got money to buy more.: Never true 2. Within the past 12 months, the food we bought just didn't last and we didn't have money to get more.: Never true Has lack of transportation kept you from medical appointments or from doing things needed for daily living?: no Has anyone in your life made you feel unsafe or unsupported?: no How hard is it for you to pay for the very basics like food, housing, medical care, and heating? Would you say it is:: Not hard at all Do you want help finding or keeping work or a job?: I do not need or want help If for any reason you need help with day-to-day activities such as bathing, preparing meals, shopping, managing finances, etc., do you get the help you need?: I don?t need any help How often do you feel lonely or isolated from those around you?: Never Do you speak a language other than Danish at home?: No Does the patient want assistance with any of the above?: No
--- NOTE | 2024-07-22 17:49 | DSE_ITS ---
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 His chest pain resolved in the emergency room and his EKG was benign but he had mildly elevated troponins. His cardiology team at [facility] was consulted and recommended admission for trending troponins and an echocardiogram. His troponins maxed out at 87 at 14:59 and were down to 63 but 16:20 and 23 by the next morning. He had no recurrence of chest pain with ambulation or concerning events on telemetry. He requested discharge after the first day of observation as echocardogram was not available on Tuesday. Given his improvement, we agreed to discharge with [facility] echocardiogram as an outpatient and strict precautions to avoid strenuous activity and other cardiac stresses until he has follow up with his lead material handler. Given his travel plans, we would like the echocardiogram done 07/23 if at all possible. Home Meds and New Rx's Prescriptions: Continued aspirin [Aspirin Low-Strength] 81 MG tablet,chewable 81 mg PO DAILY Patient Comments: RECOMMEND D/C BY [facility] CARDIOLOGY 05/17/16 - JN albuterol sulfate 8.5 GM HFA aerosol inhaler 2 puff Inhalation Q4H PRN chlorthalidone 25 mg tablet 25 mg PO DAILY melatonin 1 mg tablet,chewable 1 mg PO HS PRN irbesartan 300 mg Tablet 300 mg PO DAILY Discharge Instructions Additional Instructions: Take your regular blood pressure medication as well as the baby aspirin until you are seen by your lead material handler We ordered an echocardiogram, which we will try to get done Sunday 07/23. [facility] diagnostic imaging should be reaching out Tuesday. Avoid strenuous activity and other stressors to the heart, at least until you are re-evaluated by your lead material handler at [facility] Go to the emergency room or call 911 if you get any recurrence of chest pain Stand Alone Forms: Nursing Discharge Form Referrals: Joey Swan [ NON-[facility] STAFF PHYSICIAN] - (follow up before the end of the month with Dr. Swan. Please call on Tuesday to make a follow up appointment, due to the weekend, I could not leave voicemail.) Unknown,Unknown [Primary Care Provider] - (Please call your PCP office on Tuesday to make a follow up appointment for within 1 to 2 weeks.) Activity:: avoid strenous activity Equipment/Supplies:: No Equipment Needed Diet:: As Tolerated Discharge Orders Discharge Orders: Discharge Order (Routine); Ordered 07/22/24 Ordered By: Solomon Gr Discharge Data Discharge Date/Time-TO BE ENTERED AT DEPARTURE: 07/22/24 10:23 DS: Summary Time Spent with Patient providing and/or coordinating discharge services: Greater than 30 minutes Status at Discharge Functional status at discharge: independent ambulation Overall status at discharge: patient is back to baseline Mental Status: mental status grossly normal Speech and Movement: speech and movement normal Mood: congruent mood Affect: normal affect Quality:SDOH Health Related Social Needs: No Data to Display Exam Narrative Exam Narrative: Well-appearing young gentleman, walking around the room, no acute distress, ANO x 4, heart regular rhythm, no murmur, lungs clear to auscultation bilaterally, abdomen soft, nontender, nondistended, extremities w/o c/c/edema. Psych Mental Status: mental status grossly normal Speech and Movement: speech and movement normal Mood: congruent mood Affect: normal affect DS: Data Vitals/I&O Vitals and I&O: Vital Signs Temperature 36.6 C 07/22/24 03:38 Temperature Source Temporal Artery Scan 07/22/24 03:38 Pulse 48 L 07/22/24 03:38 Pulse Rhythm Regular 07/21/24 16:13 Pulse 60 07/21/24 15:32 Respiratory Rate 19 07/22/24 03:38 Respiratory Effort Normal, Non-Labored 07/21/24 16:13 Respiratory Depth Normal 07/21/24 16:13 Respiratory Pattern Normal 07/21/24 16:13 Blood Pressure 122/67 07/22/24 03:38 Blood Pressure Mean 85 07/22/24 03:38 Blood Pressure Position Supine 07/21/24 11:43 Pulse Oximetry 98 07/22/24 03:38 Oxygen Delivery Method Room Air 07/22/24 03:38 Oxygen Flow Rate 0 07/22/24 03:38 Pain Level 0 07/22/24 08:00 Intake & Output 07/21/24 07/22/24 07/22/24 23:59 11:59 23:59 Intake Total Output Total 700 / 700 700 / 700 Balance -690 / -690 -700 / -700 Intake: IV Output: Urine 700 / 700 700 / 700 Other: Urine Color Yellow Straw Urine Appearance Clear Clear Urine Odor Normal None Comment Patient voids ind. in the toilet. Patient voids ind. in toilet. Data Completed and Pending Labs on day of discharge: Labs from last 24 hours 07/22/24 05:37: WBC 7.62, RBC 5.11, Hgb 15.3, Hct 44.3, MCV 87, MCH 29.9, MCHC 34.5, RDW 11.9, Plt Count 213, MPV 10.1, Sodium 139, Potassium 3.6, Chloride 103, Carbon Dioxide 29.7, Anion Gap 6.3, BUN 22 H, Creatinine 0.8, Est GFR (CKD- EPI 2020) 124.40, Glucose 99, Calcium 9.2, Magnesium 1.9, Troponin I 23 PFSH All Active Problems (Updated 07/22/24 @ 09:27 by Solomon Gr) WPW (Exntx-Pqjwhvtdn-Limtx syndrome) (Acute) Chest pain (Acute) Asthma (Acute) Coarctation of aorta (Acute 01/27/12) Followed at [facility] and at [facility]. Moderate activity OK. F/u with cardiology 09/27 Hypertension (Acute 01/27/12) Secondary to congenital heart disease. Mainly happens with activity. Mild persistent asthma (Acute 03/17/16) Undescended testicle (Acute 03/28/13) L testicle removed at age 7. Well adult health check (Acute 03/18/17) Medical History (Updated 07/22/24 @ 09:27 by Solomon Gr) Asthma History of Edboo-Owuocnlcc-Rkipz (WPW) syndrome Coarctation of thoracic aorta Surgical History (Updated 12/05/14 @ 14:41 by Chung Sanchez DO) chest surgery aortic stent placement Social History Smoking/Tobacco Use Status: Never Smoking risk assessment performed?: Yes Alcohol Intake: current Alcohol Intake frequency: a few times a month Drug use: Occasionally Substance use type: marijuana Housing: house Do you feel safe at home: Yes Do you feel safe in your relationship?: Yes Time Spent with Patient Time Spent with Patient: <45 minutes Time was spent: preparing to see the patient(eg.review tests), obtaining and/or reviewing separately otained hiistory, ordering medications,tests, procedures, referring, communicating with other health caregiver assisted living, indepentently interpreting results, counseling the patient and care coordination
== END 2024-07-22 10:23 | disposition home or self-care (01) ==
LOC: ER 14:46 → MS 15:48
PROVIDERS: Admitting Provider Family Medicine; Emergency Provider Registered Nurse Emergency; Responsible Provider Family Medicine; Visit Provider Family Medicine
DX: R07.89 Other chest pain (principal); Q25.1 Coarctation of aorta; I45.6 Pre-excitation syndrome; R06.02 Shortness of breath; Z95.828 Presence of other vascular implants and grafts; I10 Essential (primary) hypertension; Z79.899 Other long term (current) drug therapy; J45.30 Mild persistent asthma, uncomplicated
CPT/HCPCS: 00123; 36415; 71275; 80048; 80053; 83690; 85027; 87637; 93005; 99285; 83735; 83880; 84484; 85025; 85379; 85610; 85730; 93010; 99223; 99239; G0378; J3490